=== PATIENT | female | born 1955 ===

== ENCOUNTER 2021-07-03 09:00 | Inpatient (IN) | payer OTHER ==
[~2021-07-03] VITALS: Ht 154.9 cm; Wt 59.0 kg
[2021-07-03] MEDS ORDERED: ZESTRIL20 MG PO (13:08)
[2021-07-03] MEDS ORDERED: METFORM PO (13:08)
[2021-07-03] MEDS ORDERED: SIMVASTA PO (13:09)
[2021-07-03] MEDS ORDERED: LANTUS (13:10)
[2021-07-14] MEDS ORDERED: B-122500 MCG (10:30)
[2021-07-14] MEDS ORDERED: FAMOTIDINE20 MG (10:30)
[2021-07-14] MEDS ORDERED: GABAPENTIN600 MG (10:30)
[2021-07-14] MEDS ORDERED: SIMVASTATIN20 MG (10:31)
[2021-07-14] MEDS ORDERED: METFORMIN HCL850 M1 (10:31)
[2021-07-14] MEDS ORDERED: SEMGLEE100 UNIT/1 (10:31)
[2021-07-16] MEDS ORDERED: BACTRIM DS TAB1 EACH PO (06:25)
[2021-07-16] MEDS ORDERED: INTEGRA PLUS C1 EACH PO (06:25)
[2021-07-16] MEDS ORDERED: OXYC1TAB9 PO (06:25)
[2021-07-16] MEDS ORDERED: XARELTO10 MG PO (06:25)
== END 2021-07-16 15:53 | DRG 470 ==
LOC: O/R 07-14 05:08 → SURH 07-14 05:08
PROVIDERS: ADMIT Orthopaedic Surgery Sports Medicine; ATTEND Orthopaedic Surgery Sports Medicine
PROC: 3E0F7SF Introduction of Other Gas into Respiratory Tract, Via Natural or Artificial Opening (ICD-10-PCS; 2021-07-14)
PROC: 0SRD0J9 Replacement of Left Knee Joint with Synthetic Substitute, Cemented, Open Approach (ICD-10-PCS; principal; 2021-07-14 07:00)
PROC: 30233N1 Transfusion of Nonautologous Red Blood Cells into Peripheral Vein, Percutaneous Approach (ICD-10-PCS; 2021-07-15)
DX: M17.12 Unilateral primary osteoarthritis, left knee (principal); D62 Acute posthemorrhagic anemia; E11.9 Type 2 diabetes mellitus without complications; I10 Essential (primary) hypertension; Z79.84 Long term (current) use of oral hypoglycemic drugs